=== PATIENT | male | born 1955 | race Caucasian/White ===

== ENCOUNTER 2017-03-09 13:20 | Outpatient (CLI) | payer BC ==
--- NOTE | 2017-03-09 14:43 | RAD ---
TWO VIEWS CHEST: History: Dyspnea. FINDINGS: Lungs appear clear of infiltrate. Heart size is upper normal. Vascular markings normal. Osseous struc tures unremarkable with anterior osteophytes and ossification of the anterior longitudinal ligament i n the thoracic spine. IMPRESSION: No evidence of acute lung process. POS: [facility]
== END 2017-03-09 13:21 | disposition home or self-care (01) ==
LOC: RAD 13:20
PROVIDERS: ATTEND Internal Medicine Pulmonary Disease
DX: R06.00 Dyspnea, unspecified (principal)
CPT/HCPCS: 71020